=== PATIENT | female | born 1970 | race Caucasian/White ===

== ENCOUNTER → 2016-05-22 | Outpatient (CLI) | payer OTHER ==
[~2016-05-22] MED LIST: PRESTIQUE; PROM25TA PO
[2016-05-22 14:19] LABS: INFLUENZA A PCR Neg for Influ A (NEG)
[2016-05-22 14:31] LABS: INFLUENZA B PCR POS for Influ B (NEG)
== END | disposition home or self-care (01) ==
LOC: C.LAB 11:56
PROVIDERS: ATTEND Internal Medicine
DX: R50.9 Fever, unspecified (principal)

== ENCOUNTER → 2016-08-18 | Outpatient (CLI) | payer OTHER ==
[~2016-08-18] MED LIST changes: +BUPR-267 PO; +DULO60CA44 PO; +FENO145T26 PO; +LEVO112T4 PO; +LEVO75TA5 PO; +ONDA4TAB10 SL
[2016-08-18 14:03] LABS: CHOLESTEROL/HDL RATIO 5.1; THYROID STIMULATING HORMONE 1.69 uIu/ml (0.300-4.500)
== END | disposition home or self-care (01) ==
LOC: C.LABPVFM 07:31
PROVIDERS: ATTEND Internal Medicine
DX: E03.9 Hypothyroidism, unspecified (principal); E78.1 Pure hyperglyceridemia; E55.9 Vitamin D deficiency, unspecified

== ENCOUNTER 2016-12-18 13:38 | Emergency (ER) | payer BC, OTHER ==
[~2016-12-18] VITALS: Ht 149.9 cm; Wt 64.2 kg
[~2016-12-18 13:38] MED LIST changes: -BUPR-267 PO; -DULO60CA44 PO; -FENO145T26 PO; -LEVO112T4 PO; -LEVO75TA5 PO; -ONDA4TAB10 SL
[2016-12-18 13:41] VITALS: TEMP 36.8; Ht 149.9 cm; Wt 64.2 kg
--- NOTE | 2016-12-18 15:11 | EMERGENCY ROOM VISIT NOTE ---
History Report prepared by Dayron: Hilario Otto Under the Supervision of: Dr. Mitchel Da Silva M.D. First contact with patient: 14:39 Chief Complaint: VOMITING Stated Complaint: HEADACHE,VOMITING,DIZZY,BLURRED VISION,ELEVATED BP Nursing Triage Summary: pt c/o body aches and nauseated, eye blurry, while at school sent here for eval History of Present Illness The patient is a 46 year old white female with a past medical history of hypothyroidism, factor 5 Leiden, anxiety, depression, and hysterectomy who presents to the ED with a cc of intermittent vomiting beginning around 1045 this morning. Positive dizziness, nausea, headache, and head pounding. Negative chest pain and back pain. Her last BM was this morning. She states that she has had dizziness for the past two weeks. She has no recent medication changes. Source of History: patient Onset: 1045 Position: other (global) Quality: other (vomiting) Timing: intermittent Associated Symptoms: + headache, + nausea Note: Associated symptoms: dizziness Review of Systems See HPI for pertinent positives and negatives. A total of ten systems were reviewed and were otherwise negative. Past Medical & Surgical Medical Problems: (1) Anxiety (2) Depression (3) Factor 5 Leiden mutation, heterozygous (4) Hypothyroid Surgical Problems: (1) H/O: hysterectomy Social History Smoking Status: Never Smoker Marital Status: Housing Status: lives with family Occupation Status: employed Current/Historical Medications Scheduled Bupropion Hcl (Bupropion Hcl Er), 150 MG PO BID Duloxetine Hcl (Cymbalta), 60 MG PO DAILY Fenofibrate (Tricor ), 145 MG PO DAILY Levothyroxine Sodium (Levothyroxine Sodium), 75 MCG PO 5XWK Levothyroxine Sodium (Levothyroxine Sodium), 56 MCG PO 2XWK Ondasetron Odt (Zofran Odt), 4 MG SL Q6H Allergies Coded Allergies: Codeine (Verified Allergy, Unknown, Unknown, 12/18/16) Penicillins (Verified Allergy, Unknown, 04/16/09) Physical Exam Vital Signs Date Time Temp Pulse Resp B/P (MAP) Pulse Ox O2 Delivery O2 Flow Rate FiO2 12/18/16 16:14 96 20 146/90 96 Room Air 12/18/16 15:42 86 12/18/16 13:41 36.8 97 18 161/96 97 Room Air Physical Exam GENERAL: Awake, alert, well-appearing, NAD HENT: Normocephalic, atraumatic. EYES: Normal conjunctiva. Sclera non-icteric. Wearing contact lenses. NECK: Supple. No nuchal rigidity. FROM. RESPIRATORY: CTAB, no rhonchi, wheezing, crackles CARDIAC: RRR, no MRG ABDOMEN: Soft, NTND, BS+ MSK: No chest wall TTP, no LE edema NEURO: GCS 15, CN 2-12 intact, moves all 4s on command. Good finger to nose. No dysmetria. No neuro deficits SKIN: No rash or jaundice noted. Medical Decision & Procedures ER Provider Diagnostic Interpretation: Radiology results as stated below per my review and radiologist interpretation: CHEST ONE VIEW PORTABLE CLINICAL HISTORY: 46 years-old Female presenting with ABDOMINAL PAIN/GI. TECHNIQUE: PA and lateral views of the chest were obtained. COMPARISON: CT chest on 12/25/2006. FINDINGS: Cardiomediastinal silhouette normal. Lungs and pleural spaces clear. Osseous structures normal. Upper abdomen normal. IMPRESSION: 1. No acute cardiopulmonary disease. Electronically signed by: Ellis Gabriel M.D. 12/18/2016 3:58 PM Dictated Date/Time: 12/18/2016 3:52 PM Laboratory Results 12/18/16 14:50 Red Blood Count 4.40, Mean Corpuscular Volume 87.5, Mean Corpuscular Hemoglobin 31.1, Mean Corpuscular Hemoglobin Concent 35.6, Mean Platelet Volume 8.7, Neutrophils (%) (Auto) 70.3, Lymphocytes (%) (Auto) 25.4, Monocytes (%) (Auto) 3.1, Eosinophils (%) (Auto) 0.6, Basophils (%) (Auto) 0.2, Neutrophils # (Auto) 3.68, Lymphocytes # (Auto) 1.33, Monocytes # (Auto) 0.16, Eosinophils # (Auto) 0.03, Basophils # (Auto) 0.01 12/18/16 14:50 Test 12/18/16 14:45 12/18/16 14:50 Urine Color YELLOW Urine Appearance CLEAR (CLEAR) Urine pH 5.0 (4.5-7.5) Urine Specific [place] 1.025 (1.000-1.030) Urine Protein NEG (NEG) Urine Glucose (UA) NEG (NEG) Urine Ketones NEG (NEG) Urine Occult Blood NEG (NEG) Urine Nitrite NEG (NEG) Urine Bilirubin NEG (NEG) Urine Urobilinogen NEG (NEG) Urine Leukocyte Esterase NEG (NEG) White Blood Count 5.23 K/uL (4.8-10.8) Red Blood Count 4.40 M/uL (4.2-5.4) Hemoglobin 13.7 g/dL (12.0-16.0) Hematocrit 38.5 % (37-47) Mean Corpuscular Volume 87.5 fL (80-100) Mean Corpuscular Hemoglobin 31.1 pg (25-34) Mean Corpuscular Hemoglobin Concent 35.6 g/dl (32-36) Platelet Count 166 K/uL (130-400) Mean Platelet Volume 8.7 fL (7.4-10.4) Neutrophils (%) (Auto) 70.3 % Lymphocytes (%) (Auto) 25.4 % Monocytes (%) (Auto) 3.1 % Eosinophils (%) (Auto) 0.6 % Basophils (%) (Auto) 0.2 % Neutrophils # (Auto) 3.68 K/uL (1.4-6.5) Lymphocytes # (Auto) 1.33 K/uL (1.2-3.4) Monocytes # (Auto) 0.16 K/uL (0.11-0.59) Eosinophils # (Auto) 0.03 K/uL (0-0.5) Basophils # (Auto) 0.01 K/uL (0-0.2) RDW Standard Deviation 42.2 fL (36.4-46.3) RDW Coefficient of Variation 13.2 % (11.5-14.5) Immature Granulocyte % (Auto) 0.4 % Immature Granulocyte # (Auto) 0.02 K/uL (0.00-0.02) Anion Gap 7.0 mmol/L (3-11) Est Creatinine Clear Calc Drug Dose 67.5 ml/min Estimated GFR () 96.6 Estimated GFR (Non- 83.4 BUN/Creatinine Ratio 16.9 (10-20) Calcium Level 9.4 mg/dl (8.5-10.1) Phosphorus Level 3.5 mg/dl (2.5-4.9) Magnesium Level 2.4 mg/dl (1.8-2.4) Total Bilirubin 0.8 mg/dl (0.2-1) Direct Bilirubin 0.2 mg/dl (0-0.2) Aspartate Amino Transf (AST/SGOT) 30 U/L (15-37) Alanine Aminotransferase (ALT/SGPT) 46 U/L (12-78) Alkaline Phosphatase 110 U/L (45-117) Total Protein 8.2 gm/dl (6.4-8.2) Albumin 4.8 gm/dl (3.4-5.0) Lipase 174 U/L (73-393) Thyroid Stimulating Hormone (TSH) 1.010 uIu/ml (0.300-4.500) Laboratory results reviewed by me Medications Administered Medications (Trade) Dose Ordered Sig/Thad Route Start Time Stop Time Status Last Admin Dose Admin Sodium Chloride 1,000 ml @ 999 mls/hr Q1H1M STAT IV 12/18/16 15:18 12/18/16 16:18 DC 12/18/16 15:40 999 MLS/HR Ondansetron HCl (Zofran Inj) 4 mg NOW STAT IV 12/18/16 15:18 12/18/16 15:19 DC 12/18/16 15:39 4 MG Metoclopramide HCl (Reglan Inj) 10 mg NOW STAT IV 12/18/16 16:26 12/18/16 16:27 DC 12/18/16 16:54 10 MG Diphenhydramine HCl (Benadryl Inj) 25 mg NOW STAT IV 12/18/16 16:26 12/18/16 16:27 DC 12/18/16 16:54 25 MG Sodium Chloride 500 ml @ 999 mls/hr Q31M STAT IV 12/18/16 16:26 12/18/16 16:56 DC 12/18/16 16:54 999 MLS/HR ECG Indication: vomiting Rate (beats per minute): 83 Rhythm: normal sinus Findings: T-wave inversion (lead 3), other (Normal intervals. No STS changes. Normal axis) ED Course 1458: The patient was evaluated in room A11. A complete history and physical exam was performed. 1626: I reevaluated the patient, and she states that she is feeling better, but she has a little bit of a headache. Medical Decision The patient is a 46 year old white female with a past medical history of hypothyroidism, factor 5 Leiden, anxiety, depression, and hysterectomy who presents to the ED with a cc of intermittent vomiting beginning around 1045 this morning. Positive dizziness, nausea, headache, and head pounding. Negative chest pain and back pain. Her last BM was this morning. She states that she has had dizziness for the past two weeks. She has no recent medication changes. Triage Nursing notes reviewed. The patient's presentation and history were concerning for etiologies such as metabolic, infection, hypo/hyperglycemia, electrolyte abnormalities, cardiac sources, intracerebral event, toxicologic, neurologic, as well as others were entertained. Patient was seen and evaluated at the bedside. Patient does have a history of factor V anxiety depression hypothyroidism. Patient did complain of some acute onset nausea with vomiting. She does not have any neurologic complaints. Patient did complain of some mild lightheadedness. No vertiginous symptoms. Patient does take a daily baby aspirin she was advised for history factor V. Patient denies any chest pain or shortness of breath. Patient's blood work fairly unremarkable EKG and troponin negative less likely ACS. Patient chest x- ray clear. Patient was given fluids as well as supportive care for her headache. Patient's pain improved. Patient without any neurologic deficits do not believe this to be an acute emergency that requires a CT of the brain. HUNG completely resolved. Patient was told to follow up as an outpatient given her factor V leiden. She was given strict follow-up, discharge, and return cautions. Patient agreed with plan of care was discharged home. Medication Reconcilliation Current Medication List: was personally reviewed by me Blood Pressure Screening Patient's blood pressure: Elevated blood pressure Blood pressure disposition: Elevated BP felt to be situational Impression Primary Impression: Lightheadedness Additional Impression: Headache Scribe Attestation The scribe's documentation has been prepared under my direction and personally reviewed by me in its entirety. I confirm that the note above accurately reflects all work, treatment, procedures, and medical decision making performed by me. Departure Information Dispostion Home / Self-Care Prescriptions Ondasetron Odt (ZOFRAN ODT) 4 Mg Tab 4 MG SL Q6H for Nausea, #6 TAB Prov: Mitchel Da Silva M.D. 12/18/16 Referrals Solo Hamilton M.D. (PCP) Forms HOME CARE DOCUMENTATION FORM, IMPORTANT VISIT INFORMATION Patient Instructions ED Dizziness Chiqui [facility] Additional Instructions Please return to the emergency department if you have worsening or recurrent symptoms not amenable to at-home treatment. Please call for a follow-up appointment with her primary care physician. Please take your medications as prescribed. If you have other concerns and/or complaints please feel free to also call your primary care physician's office or return the ED for further evaluation, management, and treatment. You may take 600 mg Ibuprofen every 6 hours as needed for pain with food for no more than 2 consecutive days. You may take tylenol 1000mg every 6 hours as needed for pain. You may take motrin and tylenol separately or at the same time. You have been examined and treated today on an emergency basis only. This is not a substitute for, or an effort to provide, complete comprehensive medical care. It is impossible to recognize and treat all injuries or illnesses in a single emergency department visit. It is therefore important that you follow up closely with [facility]. Call as soon as possible for an appointment. Thank you for your time and consideration. I look forward to speaking with you again soon. Please don't hesitate to call us if you have any questions. Problem Qualifiers Additional Impression: Headache Headache type: unspecified Headache chronicity pattern: acute headache Intractability: not intractable Qualified Codes: R51 - Headache
[2016-12-18] MEDS ORDERED: SODIUM CHLORIDE 0.9% 1000ML 1,000 ML IV STA (15:18)
[2016-12-18] MEDS ORDERED: ONDANSETRON INJ 2 MG/ML 2 ML VIAL IV STA (15:18)
[2016-12-18 15:41] LABS: URINE APPEARANCE CLEAR (CLEAR); URINE BILIRUBIN NEG (NEG); URINE COLOR YELLOW; URINE NITRITE NEG (NEG); URINE SPECIFIC GRAVITY 1.025 (1.000-1.030); UROBILINOGEN NEG (NEG); ZZUR CULT IF INDIC CLEAN CATCH NO
[2016-12-18 15:44] LABS: MANUAL MICROSCOPIC REQUIRED? NO; REVIEW REQ? NO
[2016-12-18 15:49] LABS: BASO % 0.2 %; BASO ABS # 0.01 K/uL (0-0.2); COMPLETE YES; EOS % 0.6 %; HEMATOCRIT 38.5 % (37-47); IG% 0.4 %; LYMPH % 25.4 %; LYMPH ABS # 1.33 K/uL (1.2-3.4); MEAN CELL VOLUME 87.5 fL (80-100); MEAN CORPUSCULAR HEMOGLOBIN 31.1 pg (25-34); MEAN CORPUSCULAR HGB CONC 35.6 g/dl (32-36); MEAN PLATELET VOLUME 8.7 fL (7.4-10.4); MONO % 3.1 %; NEUT % 70.3 %; PLATELET COUNT 166 K/uL (130-400); WHITE BLOOD COUNT 5.23 K/uL (4.8-10.8)
[2016-12-18] MEDS ORDERED: FENO145T26 PO (15:49)
[2016-12-18] MEDS ORDERED: BUPR-267 PO (15:49)
[2016-12-18] MEDS ORDERED: LEVO75TA5 PO (15:49)
[2016-12-18] MEDS ORDERED: DULO60CA44 PO (15:49)
[2016-12-18] MEDS ORDERED: LEVO112T4 PO (15:49)
[2016-12-18 15:59] LABS: BUN/CREATININE RATIO 16.9 (10-20); CALCIUM 9.4 mg/dl (8.5-10.1); CREATININE 0.83 mg/dl (0.60-1.20); MAGNESIUM 2.4 mg/dl (1.8-2.4); POTASSIUM 3.7 mmol/L (3.5-5.1)
--- NOTE | 2016-12-18 16:00 | DIAGNOSTIC IMAGING REPORT ---
CHEST ONE VIEW PORTABLE CLINICAL HISTORY: 46 years-old Female presenting with ABDOMINAL PAIN/GI. TECHNIQUE: PA and lateral views of the chest were obtained. COMPARISON: CT chest on 12/25/2006. FINDINGS: Cardiomediastinal silhouette normal. Lungs and pleural spaces clear. Osseous structures normal. Upper abdomen normal. IMPRESSION: 1. No acute cardiopulmonary disease. Electronically signed by: Ellis Gabriel M.D. 12/18/2016 3:58 PM Dictated Date/Time: 12/18/2016 3:52 PM
[2016-12-18 16:08] LABS: PHOSPHORUS 3.5 mg/dl (2.5-4.9); THYROID STIMULATING HORMONE 1.01 uIu/ml (0.300-4.500)
[2016-12-18] MEDS ORDERED: SODIUM CHLORIDE 0.9% 500ML 500 ML IV STA (16:26)
[2016-12-18] MEDS ORDERED: DiphenhydrAMINE HCL 50 MG/ML VIAL IV STA (16:26)
[2016-12-18] MEDS ORDERED: METOCLOPRAMIDE HCL INJ 5 MG/ML 2 ML VIAL IV STA (16:26)
[2016-12-18] MEDS ORDERED: ONDA4TAB10 SL (17:41)
[2016-12-18] MEDS ORDERED: ONDANSETRON HOME PACK 4MG OD TAB PO ONE (17:45)
[2016-12-18 18:01] VITALS: BP 146/91; PULSE 90; O2SAT 96
== END 2016-12-18 18:01 | disposition home or self-care (01) ==
LOC: C.EDB 13:40 → C.EDA 18:01
DX: R51 Headache (principal); R11.2 Nausea with vomiting, unspecified; R42 Dizziness and giddiness; H53.8 Other visual disturbances; E03.9 Hypothyroidism, unspecified; D68.51 Activated protein C resistance; F41.9 Anxiety disorder, unspecified; Z79.899 Other long term (current) drug therapy

== ENCOUNTER → 2017-04-19 | Outpatient (CLI) | payer BC ==
[~2017-04-19] MED LIST changes: +BUPR-267 PO; +DULO60CA44 PO; +FENO145T26 PO; +LEVO112T4 PO; +LEVO75TA5 PO; +ONDA4TAB10 SL; -PRESTIQUE; -PROM25TA PO
[2017-04-19 12:42] LABS: ALT/SGPT 38 U/L (12-78); AST/SGOT 25 U/L (15-37); BLOOD UREA NITROGEN 13 mg/dl (7-18); CALCIUM 9.4 mg/dl (8.5-10.1); CARBON DIOXIDE 28 mmol/L (21-32); CHOLESTEROL 204 mg/dl (0-200); CREATININE 0.94 mg/dl (0.60-1.20); GLUCOSE 90 mg/dl (70-99); POTASSIUM 3.9 mmol/L (3.5-5.1); SODIUM 137 mmol/L (136-145)
[2017-04-19 12:59] LABS: LDL CHOLESTEROL CALCULATED 135 mg/dl
== END | disposition home or self-care (01) ==
LOC: C.LAB 10:44
PROVIDERS: ATTEND Internal Medicine
DX: E78.1 Pure hyperglyceridemia (principal); E03.9 Hypothyroidism, unspecified